=== PATIENT | female | born 1945 | race Caucasian/White ===

== ENCOUNTER → 2016-11-06 | Outpatient (CLI) | payer MEDICARE, OTHER | LOC: GMAJ 10:30 | PROVIDERS: ATTEND Family Medicine | DX: R56.9 Unspecified convulsions (principal) ==

== ENCOUNTER → 2017-03-14 | Outpatient (CLI) | payer MEDICARE, OTHER | END | disposition home or self-care (01) | LOC: GMAJ 11:00 | PROVIDERS: ATTEND Family Medicine | DX: R56.9 Unspecified convulsions (principal) ==

== ENCOUNTER → 2017-06-01 | Outpatient (CLI) | payer MEDICARE, OTHER ==
--- NOTE | 2017-06-04 05:05 | RAD ---
Procedure: XR KNEE 4 OR MORE VIEWS Exam Date: 06/01/2017 12:00 AM CDT Ordering Provider: TIM ROJAS Clinical Indication: Left knee pain Comparison: None Findings: No fractures or subluxations. No joint effusion seen. No subcutaneous gas or radiopaque foreign body. No lytic or sclerotic lesions identified. No significant degenerative change. Impression: Unremarkable left knee series. Electronically signed by: Krish Yuan MD 06/04/2017 5:04 AM CDT
--- NOTE | 2017-06-04 05:16 | RAD ---
Procedure: XR HIP 2 OR MORE VIEWS Exam Date: 06/01/2017 12:00 AM CDT Ordering Provider: TIM ROJAS Clinical Indication: Left hip PAIN Comparison: None FINDINGS: There is no fracture or dislocation. No significant degenerative changes. Visualized portions of the hemipelvis are normal. There is no lytic or sclerotic lesion. No suspicious calcifications. Impression: 1. Negative exam of the left hip. Electronically signed by: Krish Yuan MD 06/04/2017 5:15 AM CDT
--- NOTE | 2017-06-04 05:59 | RAD ---
Procedure: XR PELVIS 1-2 VIEWS Exam Date: 06/01/2017 12:00 AM CDT Ordering Provider: TIM ROJAS Clinical Indication: LEFT HIP PAIN Comparison: August 30, 2015 FINDINGS: There is no fracture or dislocation. Articular surface of each hip has a normal appearance. The sacroiliac joints have a normal appearance bilaterally. The pubic symphysis is normal. There are no lytic or sclerotic lesions. There are no suspicious calcifications. Impression: 1. Negative exam of the pelvis and each hip. Electronically signed by: Krish Yuan MD 06/04/2017 5:58 AM CDT
== END | disposition home or self-care (01) ==
LOC: RAD 10:18
PROVIDERS: ATTEND Orthopaedic Surgery
DX: M25.552 Pain in left hip (principal); M25.562 Pain in left knee

== ENCOUNTER → 2017-12-18 | Outpatient (CLI) | payer MEDICARE, OTHER | LOC: GMAJ 10:54 | PROVIDERS: ATTEND Family Medicine | DX: R56.9 Unspecified convulsions (principal); Z79.899 Other long term (current) drug therapy ==

== ENCOUNTER → 2018-08-12 | Outpatient (CLI) | payer MEDICARE, OTHER | LOC: GMAJ 12:44 | PROVIDERS: ATTEND Family Medicine | DX: R56.9 Unspecified convulsions (principal) ==

== ENCOUNTER → 2018-10-03 | Outpatient (CLI) | payer MEDICARE, OTHER ==
--- NOTE | 2018-10-03 10:16 | RAD ---
EXAM DESCRIPTION: Pelvis CLINICAL HISTORY: 73 years Female, PELVIS PAIN COMPARISON: June 01, 2017 FINDINGS: Single AP view of the pelvis shows no pelvic fracture. Moderate degenerative changes in the left hip including joint space narrowing. The right hip joint space is relatively well maintained. The sacroiliac joints and pubic symphysis are unremarkable. IMPRESSION: [id number] degenerative changes in the left hip, otherwise unremarkable exam. Electronically signed by: Jasper Falk MD 10/03/2018 10:15 AM [facility]
--- NOTE | 2018-10-03 10:18 | RAD ---
EXAM DESCRIPTION: Hip,Left 2 Views CLINICAL HISTORY: 73 years Female, HIP PAIN COMPARISON: June 01, 2017 FINDINGS: Two views of the left hip show moderate left hip joint space narrowing with osteophyte arising from the posterior superior margin of the acetabulum, all not significantly changed from May,. The femoral head contour is smooth. No focal lesion is present in the proximal femur. The soft tissues are unremarkable. IMPRESSION: Moderate degenerative changes in the left hip, unchanged from June 01, 2017. Electronically signed by: Jasper Falk MD 10/03/2018 10:17 AM [facility]
== END ==
LOC: RAD 08:08
PROVIDERS: ATTEND Orthopaedic Surgery
DX: M25.552 Pain in left hip (principal); M12.852 Other specific arthropathies, not elsewhere classified, left hip

== ENCOUNTER → 2018-10-11 | Outpatient (CLI) | payer MEDICARE, OTHER ==
--- NOTE | 2018-10-21 16:31 | MRI ---
EXAM DESCRIPTION: MRI left hip CLINICAL HISTORY: Left hip pain COMPARISON: None. TECHNIQUE: Multiplanar, multisequence MR images of the left hip FINDINGS: Osteoarthritis left hip with broad region of full-thickness chondrosis over the anterior weightbearing acetabulum over about 2.6 x 2 cm. Subchondral cortical irregularity, minimal cystic change and edema. Diffuse joint space narrowing otherwise without focal osteochondral lesion. Small femoral head and acetabular osteophyte ridge. Small joint effusion. Degenerative tear of the mid anterior to anterior superior labrum. Blunting of the superior lateral labrum with sublabral acetabular osteophyte ridge over covering the mid to posterior superior femoral head predisposing to pincer-type femoroacetabular impingement Insertional tendinosis of the gluteus minimus and anterior gluteus medius No pelvic soft tissue mass lesion, adenopathy or free fluid. No mass lesion or acute inflammatory process seen in the visualized and large intestine. No neoplastic marrow lesion. 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 Full-thickness chondrosis and underlying bony changes anterior weightbearing acetabulum Electronically signed by: Freeman Butterfield MD 10/11/2018 4:49 PM [facility]
== END ==
LOC: MRI 11:00
PROVIDERS: ATTEND Orthopaedic Surgery
DX: M16.12 Unilateral primary osteoarthritis, left hip (principal); M25.552 Pain in left hip

== ENCOUNTER 2018-11-20 05:37 | Day surgery (SDC) | payer MEDICARE, OTHER ==
--- NOTE | 2018-11-15 08:56 | HP ---
CHIEF COMPLAINT: Left hip pain. HISTORY OF PRESENT ILLNESS: Natasha is a 73-year-old female with a history of pain in the hip which she localized to the lateral aspect previously, but now has been getting more prominent in the groin. She denies any trauma associated with this, denies any radiation of pain and denies any neurologic symptoms. She had initially responded somewhat to injections, but most recently has failed to do so. She has had an MRI that shows no disruption of the abductor musculature. We talked about the potential of hip arthritis being the etiology. To that end, we are going to try a hip injection. After discussing the risks, benefits and alternatives to that, she has given informed consent. PAST SURGICAL HISTORY: 1. Partial colectomy. MEDICATIONS: 1. Dilantin. 2. Keppra. ALLERGIES: NO KNOWN DRUG ALLERGIES. CODE STATUS: Full code. IMMUNIZATIONS: Up to date. FAMILY HISTORY: None pertinent to today's complaint. SOCIAL HISTORY: The patient does not drink, smoke or use any illicit drugs. REVIEW OF SYSTEMS: Negative except as indicated in the History of Present Illness. PHYSICAL EXAMINATION: VITAL SIGNS: Blood pressure 121/72. Pulse 71. Height 5'3". Weight 187 pounds. MENTAL STATUS: The patient is awake, alert, and is able to give a good history and participate in the physical. The patient is oriented to person, place and time. SKIN: Normal tone and turgor. MUSCULOSKELETAL: She has mild tenderness on the lateral aspect of the hip. She does have pain with internal and external rotation of the hip. Se has internal rotation to about 25 degrees and then begins having pain. She has intact sensation throughout. She has abduction to about 50 degrees. IMAGING: X-rays show some joint space narrowing, but no acute bony abnormality. ASSESSMENT: 1. Hip arthritis. PLAN: The plan at this point is for injection under anesthesia. We have discussed the risks, benefits, and alternatives to that and the patient has given informed consent. #[id number] [facility]
[2018-11-20] MEDS ORDERED: PROPOFOL 200 MG/20 ML VIAL IV ONE (10:00)
[2018-11-20] MEDS ORDERED: LIDOCAINE 1% W/ EPINEPHRINE 20 ML VIAL INJ ONE (11:53)
[2018-11-20] MEDS ORDERED: LACTATED RINGERS 1,000 ML ONE (12:04)
[2018-11-20] MEDS ORDERED: fentaNYL CITRATE INJ 50 MCG/ML AMP ONE (12:36)
[2018-11-20] MEDS ORDERED: MIDAZOLAM INJ 2 MG/2 ML VIAL ONE (12:36)
[2018-11-20] MEDS: LIDOCAINE 1% W/ EPINEPHRINE 20 ML VIAL INJ ONE (12:57)
[2018-11-20] MEDS: methylPREDNISolone ACETATE 80 MG/ML VIAL ONE (12:57)
[2018-11-20] MEDS: BUPIVACAINE 0.25% INJ 30 ML VIAL INJ ONE (12:57)
[2018-11-20 15:03] VITALS: BP 157/59; TEMP 97.8; O2SAT 98
--- NOTE | 2018-11-21 09:56 | OP ---
DATE OF PROCEDURE: 11/20/18 PREOPERATIVE DIAGNOSIS: 1. Hip pain. POSTOPERATIVE DIAGNOSIS: 1. Hip pain. PROCEDURE: 1. Hip injection under anesthesia. SURGEON: Ion Mccormick MD. ANTIQUE JEWELRY REPAIRER: Bharat Diaz CST, SA-C. ANESTHESIA: Conscious sedation. COMPLICATIONS: None. FINDINGS: Osteoarthritis of the hip. PROCEDURE: The patient was brought to the Operating Room and placed in supine position. Conscious sedation was administered and the leg was flexed, abducted and externally rotated. The groin was prepped and fluoroscopic imaging was used to confirm needle placement into the hip joint through a medial portal. Once placement had been confirmed, a combination of lidocaine and Depo-Medrol were injected into the joint. After injection, the needle was withdrawn. Pressure was held on the injection site. A sterile band-aid was placed. The patient was then taken back to the Day Surgery Unit. POSTOPERATIVE PLAN: The patient will be weight-bearing as tolerated. The patient will followup with us in 10 to 14 days. #[id number] [facility]
== END 2018-11-20 14:10 | disposition home or self-care (01) ==
LOC: AMB 05:37
PROVIDERS: ATTEND Orthopaedic Surgery
DX: M16.12 Unilateral primary osteoarthritis, left hip (principal); R56.9 Unspecified convulsions; Z90.49 Acquired absence of other specified parts of digestive tract; Z79.899 Other long term (current) drug therapy
CPT/HCPCS: 01200; 20610; 87070; J1030; J2250; J3010; J3490; J7120

== ENCOUNTER → 2019-07-14 | Outpatient (CLI) | payer MEDICARE, OTHER ==
--- NOTE | 2019-07-15 17:58 | MAM ---
EXAM DESCRIPTION: 3D Screening BILATERAL : Digital Mammography. CLINICAL HISTORY: 74 years Female ANNUAL SCREENING . No complaints. No personal or family history of breast cancer. Menarche age 13. Childbirth. Menstrual status unknown. No HRT record. Previous bilateral benign breast biopsies.. Lifetime risk of developing breast cancer (Tyrer-Cuzick model)(%): 6.6. COMPARISON: 2-D digital screening bilateral mammography 06/03/2014. No prior reports available. TECHNIQUE: Bilateral CC and MLO projection full-field images, digital tomosynthesis mammographic technique. Bilateral digital 2-D full-field MLO images. CAD not available for tomosynthesis or 2-D images. FINDINGS: The breast parenchymal density pattern is: Heterogeneously dense breast tissue, which may obscure small masses. No skin thickening or nipple retraction. Group of heterogeneous microcalcifications in the mid right breast, anterior third, 9:00 position approximately 4 cm from the nipple. Bilateral skin calcifications. Bilateral vascular calcifications.. Bilateral coarse microcalcifications. Left axillary lymph nodes. No new focal, stellate mass or density, focal asymmetry , and no suspicious microcalcifications left breast. IMPRESSION: BI-RADS CATEGORY: 0 - INCOMPLETE- Need additional imaging evaluation. FOLLOW-UP: Recall for additional imaging: Orthogonal digital Spot magnification region of interest anterior lateral right breast. Right breast full-field 2-D and tomosynthesis images LM projection directed right breast ultrasound if indicated by diagnostic images.. Written communication concerning the IMPRESSION and Follow-up, will be mailed to the patient and referring health care provider. Electronically signed by: Bharat Kinney MD 07/15/2019 5:57 PM CDT
== END ==
LOC: MAMMO 10:04
PROVIDERS: ATTEND Family Medicine
DX: Z12.31 Encounter for screening mammogram for malignant neoplasm of breast (principal); R56.9 Unspecified convulsions; Z79.899 Other long term (current) drug therapy

== ENCOUNTER → 2019-07-25 | Outpatient (CLI) | payer MEDICARE, OTHER ==
--- NOTE | 2019-07-25 17:08 | MAM ---
EXAM DESCRIPTION: Diagnostic Mammo,Right: Digital Mammography CLINICAL HISTORY: 74 yearsFemaleABNORMAL MAMMOGRAM microcalcifications in groups in the right breast. COMPARISON: Bilateral screening digital breast tomosynthesis 07/14/2019... TECHNIQUE: Right breast LM projection full-field images, digital mammographic tomosynthesis technique. Right breast 2-D digital full-field MLO images. And right breast spot compression and magnification images anterior and upper outer quadrant LM and CC projections. CAD not available. FINDINGS: The breast parenchymal density pattern is: Heterogeneously dense breast tissue, which may obscure small masses. No skin thickening or nipple retraction multiple groups of microcalcifications are seen in the upper outer quadrant of the anterior right breast. The most heterogeneous group is adjacent to biopsy site marker. Solitary microcalcifications and vascular calcifications are also present. No new focal, stellate mass or density, focal asymmetry , and no suspicious microcalcifications right breast. IMPRESSION: Group of microcalcifications in the upper outer quadrant anterior right breast most likely benign, requiring follow-up to document stability. BI-RADS CATEGORY: 3 - PROBABLY BENIGN. Management: Short interval (6-month) digital spot right breast microcalcifications and right breast tomosynthesis. Also directed right breast ultrasound if indicated.. The FINDINGS and the FOLLOW-UP plan were reviewed in person with the patient after the examination. Written communication explaining the IMPRESSION and FOLLOW-UP will be mailed to the patient and referring care provider. Electronically signed by: Bharat Kinney MD 07/25/2019 5:06 PM CDT
== END ==
LOC: MAMMO 10:00
PROVIDERS: ATTEND Family Medicine
DX: R92.8 Other abnormal and inconclusive findings on diagnostic imaging of breast (principal); R92.0 Mammographic microcalcification found on diagnostic imaging of breast
CPT/HCPCS: 77066; G0279

== ENCOUNTER → 2019-07-28 | Outpatient (CLI) | payer MEDICARE, OTHER ==
--- NOTE | 2019-07-28 09:51 | RAD ---
EXAM DESCRIPTION: Fingers,Right CLINICAL HISTORY: 74 years Female, FINGER PAIN - 3RD DIGIT COMPARISON: Radiographs of the right hand dated 07/28/2019. TECHNIQUE: 3 views of the right third digit were obtained. FINDINGS: The visualized bones appear well mineralized. No acute fracture or dislocation. Mild periosteal spurring is identified along the medial and lateral cortices of the proximal and middle phalanges of the third digit. This is nonspecific in etiology. No evidence of erosions. Diffuse soft tissue swelling is identified. IMPRESSION: No radiographic evidence of acute bony abnormality of the right third digit. Electronically signed by: Dorothy Hdz MD 07/28/2019 9:50 AM CDT
--- NOTE | 2019-07-28 09:52 | RAD ---
EXAM DESCRIPTION: Hand,Right 3 Views CLINICAL HISTORY: HAND PAIN COMPARISON: None Available. TECHNIQUE: AP, LATERAL, AND OBLIQUE FINDINGS: The visualized bones appear well mineralized. No acute fracture or dislocation. Mild spurring is identified along the medial and lateral cortices of the proximal and middle phalanges of the second, third and fourth digits. This is nonspecific in etiology. However no evidence of erosions. Degenerative changes are identified in the first carpometacarpal and multiple interphalangeal joints. Mild diffuse soft tissue swelling of the second, third and fourth digits is noted. IMPRESSION: No radiographic evidence of acute abnormality within the right hand. Degenerative changes are identified as described above. Electronically signed by: Dorothy Hdz MD 07/28/2019 9:51 AM CDT
== END ==
LOC: RAD 07:19
PROVIDERS: ATTEND Orthopaedic Surgery
DX: M18.51 Other unilateral secondary osteoarthritis of first carpometacarpal joint, right hand (principal); M19.041 Primary osteoarthritis, right hand

== ENCOUNTER → 2019-11-10 | Outpatient (CLI) | payer MEDICARE, OTHER ==
--- NOTE | 2019-11-10 16:15 | RAD ---
2 radiographs left hip. Single radiograph pelvis. Indication: PAIN IN LEFT Comparison: October 03, 2018. Impression: No acute fracture of the pelvis or left hip identified. Evaluation for fracture is limited given the degree of osteopenia. If high clinical concern for acute fracture, correlation with MRI recommended given its greater sensitivity in the osteopenic patient. If the patient cannot tolerate MRI imaging or more urgent imaging is required, CT could be performed, however it is less sensitive in the osteopenic patient when compared to MRI. Severe left hip osteoarthritis with mild right hip osteoarthritis. Moderate pubic symphysis osteoarthritis. Osteopenia. If this is a new finding, DEXA scan recommended as well as evaluation for possible osteoporosis treatment. Electronically signed by: Kris Jaime MD 11/10/2019 4:13 PM [facility]
== END ==
LOC: RAD 10:22
PROVIDERS: ATTEND Orthopaedic Surgery
DX: M16.0 Bilateral primary osteoarthritis of hip (principal); M85.88 Other specified disorders of bone density and structure, other site

== ENCOUNTER → 2019-11-26 | Outpatient (CLI) | payer MEDICARE, OTHER ==
--- NOTE | 2019-11-27 14:35 | MRI ---
EXAM DESCRIPTION: Lumbar Spine w/o Contrast : Magnetic Resonance Imaging. CLINICAL HISTORY: LUMBAR RADICULOPATHY COMPARISON: Lumbar radiographs September 2019. TECHNIQUE: Multiplanar, multiple standard sequences, non contrast MRI, lumbar spine. FINDINGS: L5-S1: The disc is well visualized on axial T2 series 501, image 3. Disc space maintained with normal signal in the disc. No bulging. Minimal degenerative hypertrophy of the flavum ligaments. Bilaterally shortened pedicles. Mild canal narrowing. Mild to moderate left foraminal narrowing and mild right foraminal narrowing. L4-L5: Disc desiccation with no disc space loss. Grade 1 anterolisthesis 2 mm. Hypertrophic degenerative changes in the posterior elements (facet joints and flavum ligaments). Bilaterally shortened pedicles. AP canal diameter 12 mm. Mild left foraminal narrowing and mild to moderate right foraminal narrowing. L3-L4: Disc desiccation and trace anterolisthesis. Minimal anterior bulging. Degenerative hypertrophy of the posterior elements. Bilaterally shortened pedicles. AP canal diameter is 11 mm. Mild to moderate narrowing of the left foramen and moderate to severe narrowing of the right foramen. L2-L3: Disc desiccation and minimal disc space loss. Minimal anterior bulging. Minimal degenerative hypertrophy of the posterior elements. Bilaterally shortened pedicles. AP canal diameter 11 mm. Bilateral moderate foraminal narrowing. L1-L2: No disc desiccation with disc space maintained. Posterior elements unremarkable. Bilaterally shortened pedicles. AP canal diameter 13 mm. Mild bilateral foraminal narrowing. T12-L1: Normal signal in the disc with disc space preserved. No bulging. Posterior elements unremarkable. Bilaterally shortened pedicles. Mild canal narrowing. Bilateral foramina are unremarkable. Conus terminates at this level. No scoliosis. Paravertebral soft tissues unremarkable. Distal cord normal signal and caliber. Otherwise normal marrow signal in the remaining vertebral bodies and the posterior elements. Vertebral bodies are not compressed at any level. IMPRESSION 1.: Multiple levels of bilateral pedicle shortening contributing to canal narrowing without canal stenosis. Also contributing to unilateral or bilateral foraminal narrowing. Multiple levels of degenerative hypertrophy of the posterior elements contributing to canal narrowing. 2. Moderate to severe narrowing of the right foramen at L3-L4. Correlate for right L3 radiculopathy. Electronically signed by: Bharat Kinney MD 11/27/2019 2:34 PM [facility]
== END ==
LOC: MRI 10:00
PROVIDERS: ATTEND Orthopaedic Surgery
DX: M54.16 Radiculopathy, lumbar region (principal); M51.86 Other intervertebral disc disorders, lumbar region; M99.53 Intervertebral disc stenosis of neural canal of lumbar region

== ENCOUNTER → 2019-12-29 | Outpatient (CLI) | payer MEDICARE, OTHER ==
--- NOTE | 2019-12-31 17:58 | MAM ---
EXAM DESCRIPTION: 3D Diagnostic, Bilateral: Digital Mammography CLINICAL HISTORY: 74 yearsFemaleABNORMAL MAMMOGRAM . Six-month follow-up microcalcifications right breast. No complaints. No personal or family history of breast cancer. Menarche age 12. Childbirth age 23. Menopause age 51. No HRT. Prior benign bilateral biopsies.. Lifetime risk of developing breast cancer (Tyrer-Cuzick model) percentage is 4.3. COMPARISON: Bilateral screening digital breast tomosynthesis June 2019. Diagnostic right breast digital tomosynthesis July 2019.. . TECHNIQUE: Right breast LM projection full-field images, digital mammographic tomosynthesis technique. Bilateral 2-D digital full-field MLO images. LM projection. Digital spot 2-D magnification mid lateral right breast, CC and LM projections. CAD available for 2-D images. FINDINGS: The breast parenchymal density pattern is: Heterogeneously dense breast tissue, which may obscure small masses. No skin thickening or nipple retraction again noted are groups of microcalcifications in the upper outer quadrant middle right breast. Heterogeneous in size but predominantly round in shape. Biopsy site marker in the same region. No new focal, stellate mass or density, focal asymmetry , and no new microcalcifications right breast. IMPRESSION: BI-RADS CATEGORY: 3 - PROBABLY BENIGN. Management: Short interval (6-month) diagnostic 2-D tomosynthesis digital images right breast and routine digital tomosynthesis follow-up left breast on or after July 2020.. The FINDINGS and the FOLLOW-UP plan were reviewed in person with the patient after the examination. Written communication explaining the IMPRESSION and FOLLOW-UP will be mailed to the patient and referring care provider. Electronically signed by: Bharat Kinney MD 12/31/2019 5:57 PM CDT
== END ==
DX: R92.8 Other abnormal and inconclusive findings on diagnostic imaging of breast (principal)
CPT/HCPCS: 77066; G0279

== ENCOUNTER → 2020-02-05 | Outpatient (CLI) | payer MEDICARE, OTHER | LOC: GMAJ 11:22 | PROVIDERS: ATTEND Family Medicine | DX: R56.9 Unspecified convulsions (principal); Z79.899 Other long term (current) drug therapy ==

== ENCOUNTER → 2020-05-10 | Outpatient (CLI) | payer MEDICARE, OTHER ==
--- NOTE | 2020-05-10 14:53 | RAD ---
EXAM DESCRIPTION: Hand,Right 3 Views CLINICAL HISTORY: HAND PAIN RIGHT COMPARISON: July 28, 2019 TECHNIQUE: AP, LATERAL, AND OBLIQUE FINDINGS: Three views right hand demonstrate modest osteopenia. Normal alignment is present. Modest degenerative changes at the base of the thumb at the CMC joint. No fracture or dislocation is seen. Predominant pattern is one of hypertrophic degenerative changes involving the DIP joints and to a lesser extent PIP joints with relative sparing of the MCP joints. Joint space narrowing at the wrist at the radiocarpal articulation noted. An accessory ossicle or old injury to the ulnar styloid again seen. IMPRESSION: 1. No acute injury identified moderate osteopenia and modest predominantly distal degenerative disease as well as degenerative arthropathy at the base of the thumb and radiocarpal joints. Electronically signed by: Freeman Pires MD 05/10/2020 2:51 PM CDT
== END ==
LOC: RAD 11:00
PROVIDERS: ATTEND Orthopaedic Surgery
DX: M19.041 Primary osteoarthritis, right hand (principal); M85.88 Other specified disorders of bone density and structure, other site

== ENCOUNTER → 2020-06-28 | Outpatient (CLI) | payer MEDICARE, OTHER | LOC: GMAJ 14:33 | PROVIDERS: ATTEND Family Medicine | DX: Z79.899 Other long term (current) drug therapy (principal) ==

== ENCOUNTER → 2020-07-21 | Outpatient (CLI) | payer MEDICARE, OTHER ==
--- NOTE | 2020-07-22 17:45 | MAM ---
EXAM DESCRIPTION: 3D Diagnostic, Bilateral: Digital Mammography CLINICAL HISTORY: 75 yearsFemale6 MONTH FOLLOW UP groups of microcalcifications right breast no complaints. No family history of breast cancer. Menarche age 12. Childbirth age 23. Menopause age 51. No HRT. Prior benign bilateral biopsies.. Lifetime risk of developing breast cancer (Tyrer-Cuzick model) percentage is 4.3. COMPARISON: prior. No prior reports available.. TECHNIQUE: Bilateral LM, CC, and MLO projection full-field images, digital mammographic tomosynthesis technique. Bilateral 2-D digital full-field MLO images. LM, CC, and MLO projections. 3-D mapping defines spot compression middle and anterior third right breast. CAD not available. FINDINGS: The breast parenchymal density pattern is: Heterogeneously dense breast tissue, which may obscure small masses. No skin thickening or nipple retraction again noted are multiple groups of heterogeneous microcalcifications in the anterior upper outer quadrant right breast. Vascular calcifications and coarse calcifications. Biopsy site marker more anterior to several of these groups. Also again seen is a group of well-rounded calcifications of varying size slightly posterior to the biopsy site marker. Stable nodular densities bilaterally consistent with intramammary lymph nodes. Axillary nodes. Multiple solitary microcalcifications posterior breast more on the right than left as well as skin calcifications. No new focal, stellate mass or density, focal asymmetry , and no suspicious microcalcifications right breast IMPRESSION: BI-RADS CATEGORY: 3 - PROBABLY BENIGN. RECOMMENDATIONS: FOLLOW-UP: Short interval (6-month) diagnostic right digital breast tomosynthesis. The FINDINGS and the FOLLOW-UP plan were reviewed in person with the patient after the examination. Written communication explaining the IMPRESSION and FOLLOW-UP will be mailed to the patient and referring care provider. Electronically signed by: Bharat Kinney MD 07/22/2020 5:43 PM CDT
== END ==
LOC: US 11:00
PROVIDERS: ATTEND Family Medicine
DX: R92.8 Other abnormal and inconclusive findings on diagnostic imaging of breast (principal)
CPT/HCPCS: 77066; G0279

== ENCOUNTER → 2020-08-03 | Outpatient (CLI) | payer MEDICARE, OTHER | LOC: GMAJ 14:35 | PROVIDERS: ATTEND Family Medicine | DX: R56.9 Unspecified convulsions (principal) ==